=== PATIENT | female | born 1990 | race Caucasian/White ===

== ENCOUNTER 2018-10-24 05:51 | Emergency (ER) | payer OTHER ==
--- NOTE | 2018-10-24 06:05 | EDPHY ---
H & P Time Seen by Provider: 10/24/18 06:01 HPI/ROS: CC: fever HPI: This 28-year-old female with past medical history of irritable bowel syndrome presents emergency room today complaining of a fever. She states this started yesterday and she took Tylenol at 8:00 p.m.. This morning she woke up in her fever was 102 F. She did not take anything for her fever this morning but she did have her windows cracked on the way in and thinks that may have contributed to his lower any of her temperature. She has had a cough. She states it was productive yesterday without collar. Today is just a harsh cough. She has body aches and states her entire back hurts and she also has lower abdominal pain but feels this could be due to her. Which she is supposed to start this weekend. She denies dysuria. She also denies headache, nausea, vomiting, shortness of breath, constipation, or diarrhea. Her chest hurts occasionally when she coughs. She is starting to get a sore throat. She denies ear pain. She started having sinus drainage today. She states she was around sick people as she just traveled to [place] recently. She denies leg pain or swelling. REVIEW OF SYSTEMS: Constitutional: See HPI. Eyes: No discharge. ENT: See HPI. Respiratory: See HPI. Cardiac: No palpitations. See HPI. Gastrointestinal: No vomiting. See HPI. Genitourinary: No hematuria or dysuria. Musculoskeletal: See HPI. Skin: No rashes. Neurological: No headache. Source: Patient Exam Limitations: No limitations - Medical/Surgical History PMH: PMH: IBS PSH: wisdom teeth removal. Procedures: endoscopy, colonoscopy. FH: Father had Non-Hodgkin's Lymphoma; Mother has colitis. No siblings. NKDA Meds: MVI, Fish Oil PCP: none - Social History Additional Social History: The patient smokes 4-5 cigarettes per day. She has 1 or 2 alcoholic beverages a couple times a week. She smokes marijuana at night occasionally and her last use was 2 days ago. She denies risk of stating she has not had sexual intercourse in 6 months. - Physical Exam Exam: General Appearance: Alert, moderate distress. Eyes: Pupils equal and round no pallor or injection. ENT, Mouth: Mucous membranes are moist. No erythema or exudate. Sinus congestion. Respiratory: There are no retractions, lungs are clear to auscultation. Cardiovascular: Regular rate and rhythm. No m/g/r. Gastrointestinal: Abdomen is soft with diffuse lower abdominal tenderness to palpation, worse suprapubically. No r/g/r. Neurological: Awake and alert, sensory and motor exams grossly normal. Skin: Warm and dry, no rashes. Musculoskeletal: Neck is supple, nontender. Left CVA tenderness to percussion. Extremities are symmetrical, full range of motion. No calf pain or swelling. Psychiatric: Patient is oriented X 3, there is no agitation. DIFFERENTIAL DIAGNOSIS: After history and physical exam differential diagnosis was considered for but not limited to and in no particular order: URI, influenza, viral syndrome, UTI, pyelonephritis, colitis Constitutional: Initial Vital Signs Temperature (C) 100.4 F 10/24/18 06:15 Heart Rate 98 10/24/18 06:15 Respiratory Rate 16 10/24/18 06:15 Blood Pressure 113/68 10/24/18 06:15 O2 Sat (%) 95 10/24/18 06:15 O2 Delivery Mode Room Air Allergies/Adverse Reactions: No Known Allergies Allergy (Unverified 10/24/18 06:14) Home Medications: Medication Instructions Recorded Fish Oil 1,000 mg Softgel 10/24/18 Multivitamin [One Daily] 10/24/18 Oseltamivir Phosphate [Tamiflu 75 75 mg PO BID 5 Days #10 cap 10/24/18 mg (*)] Medical Decision Making ED Course/Re-evaluation: The patient was seen and examined. Vital signs reviewed. She has a low-grade fever at 100.4 F. No prior records for comparison. The patient's UA was positive for trace protein and trace leukocyte esterase. This was sent to the [facility] for microscopic examination and the results are pending at the time of the patient's discharge. Her urine test was negative. Influenza swab was positive for influenza A. She was given a 1st dose of Tamiflu and a prescription for a complete 5 day course. She was given the name of a primary care provider for follow-up if needed or she will return to the emergency room if symptoms change or worsen. She is aware that her urine test is pending. All questions answered at the time of discharge. - Data Points Medications Given: Discontinued Medications Oseltamivir Phosphate (Tamiflu) 75 mg PO EDNOW ONE Stop: 10/24/18 06:36 Last Admin: 10/24/18 06:41 Dose: 75 mg Point of Care Test Results: Influenza PCR Flu Nasal Swab Collection Date 10/24/18 Flu Nasal Swab Collection Time 06:05 Influenza A Result Detected Influenza B Result Not Detected Urine Collection Date 10/24/18 Collection Time 06:10 HCG Results Negative Urine Dip Collection Date 10/24/18 Collection Time 06:10 Specific [place] (1.002-1.030) 1.015 PH (5.0-7.5) 8.5 Leukocytes (Negative) Trace Nitrites (Negative) Negative Protein (Negative) Trace Glucose (Negative) Negative Ketones (Negative) Negative Urobilnogen (0.2-1.0 EU) 0.2 Bilirubin (Negative) Negative Blood (Negative) Negative Departure - Departure Disposition: Home, Routine, Self-Care Clinical Impression: Influenza A Abdominal pain Qualifiers: Abdominal location: lower abdomen, unspecified Qualified Code(s): R10.30 - Lower abdominal pain, unspecified Condition: Good Instructions: Oseltamivir (By mouth), Influenza (ED) Additional Instructions: You have Influenza A. Take the Tamiflu as directed. Rest. Drink plenty of fluids. Your urine needed to be sent to the [facility] for further testing. We will call you with any abnormal result or call us if any questions. Follow up with the primary care provider listed if needed or return to the ER if any worsening of symptoms as discussed. Referrals: Steve Jules DO [Doctor of Osteopathy] - As per Instructions Stand Alone Forms: Work Excuse Prescriptions: Oseltamivir Phosphate [Tamiflu 75 mg (*)] 75 mg PO BID 5 Days #10 cap
[2018-10-24 06:19] VITALS: BP 113/68
[2018-10-24] MEDS ORDERED: OSELTAMIVIR PHOSPHATE 75 MG CAP PO ONE (06:35)
== END 2018-10-24 06:45 | disposition home or self-care (01) ==
LOC: CED 05:51
DX: J10.1 Influenza due to other identified influenza virus with other respiratory manifestations (principal)
CPT/HCPCS: 81025-ER; 87400-QW-ER; 99283-ER